=== PATIENT | male | born 1960 | race Caucasian/White ===

== ENCOUNTER 2020-05-25 18:09 | Inpatient (IN) | payer OTHER ==
[~2020-05-25] VITALS: Ht 177.8 cm; Wt 99.0 kg
--- NOTE | 2020-05-25 18:16 | NUR ---
TASK RN NOTE: REPORT TAKEN FROM EMS. PT BIBA FOR SYNCOPE X 2 TODAY, ONCE WHILE SITTING ON CHAIRLIFT, SECOND TIME WHILE WALKING IN [place]. PT SUSTAINED LAC TO RIGHT EYEBROW. PT DENIES MIDLINE CERVICAL PAIN/TENDERNESS. SENT TO [facility] FOR PACEMAKER PLACEMENT VIDAL BOWSER NOTED PROFOUND BRADYCARDIA, SINUS RATE BRADYCARDIA 30-40'S. EKG TAKEN ON ARRIVAL BY EDT. ALL MONITORS IN PLACE. REPORT GIVEN TO PRIMARY RN UMESH AT BEDSIDE.
--- NOTE | 2020-05-25 18:30 | NUR ---
HR 70-90, NO PALPITATION/SOB/CHEST PAIN PLACED ON MONITOR/PACER PADS BILATERAL LARGE BORE PIVS IN PLACE UPDATED ON ESTIMATED POC
--- NOTE | 2020-05-25 18:49 | NUR ---
RECEIVED REPORT FROM OFF GOING RN, PT A&OX4, NO ACUTE DISTRESS, RESTING IN BED COMFORTABLY. ON CR MONITOR, SIDERAILS UP X2, AND CALL LIGHT WITHIN REACH. SEE V/S.
--- NOTE | 2020-05-25 18:53 | NUR ---
REMAINS WITH NO BOUTS OF BRADYCARDIA ERP AT BEDSIDE-UPDATED ON ESTIMATED POC: PROBABLE ADMIT AND PACEMAKER IN AM REPORT TO RICCO BARNARD
--- NOTE | 2020-05-25 18:57 | NUR ---
WHILE TALKING WITH PT AT THIS TIME, PT HAD A RUN OF SINUS BRADYCARDIA NOTED ON MONITOR, AND PRINTED TO GO IN CHART. PT STATES HE FELT DIZZINESS AND LIGHTHEADEDNESS WHEN THAT HAPPENED. BRADYCARDIA LASTED APPROX 24 SECONDS, AND MD AWARE AND NOTIFIED.
--- NOTE | 2020-05-25 20:10 | NUR ---
PT REMAINS A&OX4, NO DISTRESS. ADMITTING MD TO SEE PT. AFTER, PT VOIDED INTO URINAL 700ML, NO DISTRESS. ABLE TO STAND, NO DIZZINESS PER PT. REMAINS ON CR MONITOR, AND AWAITING ADMIT BED.
[2020-05-25 21:26] VITALS: BP 148/90
[2020-05-25 23:40] VITALS: BP 145/92
[2020-05-26] MEDS ORDERED: hydrALAzine 20 MG/ML, 1ML IVPush PRN (01:30)
[2020-05-26] MEDS ORDERED: ONDANSETRON 2MG/ML, 2ML IVPush PRN (01:30)
[2020-05-26 02:00] VITALS: BP 147/90
[2020-05-26 02:17] LABS: BASOPHILS % (AUTO) 1 % (0-1); EOSINOPHILS % (AUTO) 1 % (1-7); LYMPHOCYTES % (AUTO) 14 % (22-44); MEAN CORPUSCULAR HEMOGLOBIN 30.2 pg (27.5-34.5); MEAN CORPUSCULAR HGB CONC 33.4 g/dL (33.2-36.2); MEAN PLATELET VOLUME 8.7 fL (7.4-10.4); MONOCYTES % (AUTO) 8 % (2-9); NEUTROPHILS % (AUTO) 77 % (42-75); PLATELET COUNT 218 x10^3/uL (130-400); RED BLOOD COUNT 4.96 x10^6/uL (4.38-5.82); RED CELL DISTRIBUTION WIDTH 13.6 % (9.4-14.8)
[2020-05-26 02:19] LABS: MD NO
[2020-05-26] MEDS: HYDROcodone/APAP 5/325 TABLET PO PRN (02:23)
[2020-05-26 03:07] LABS: TROPONIN I < 0.015 ng/mL (0.000-0.045)
[2020-05-26 07:38] LABS: TROPONIN I < 0.015 ng/mL (0.000-0.045)
[2020-05-26 08:30] VITALS: BP 149/89
[2020-05-26 08:35] VITALS: BP 164/101
[2020-05-26 08:40] VITALS: BP 142/82
[2020-05-26] MEDS ORDERED: LIDOCAINE 2%, 20ML ONE (09:24)
[2020-05-26] MEDS ORDERED: MIDAZOLAM 1 MG/ML, 5ML ONE (09:24)
[2020-05-26] MEDS ORDERED: FENTANYL PF 100 MCG/2ML ONE ×2 (09:24→10:16)
[2020-05-26] MEDS ORDERED: CEFAZOLIN 1,000 MG ONE (09:24)
[2020-05-26] MEDS ORDERED: CEFAZOLIN PMX 1GM/50ML 50 ML ONE (09:24)
[2020-05-26] MEDS: SODIUM CHLORIDE 0.9% 1,000 ML IV SCH ×2 (09:30→16:09)
[2020-05-26] MEDS ORDERED: CEFAZOLIN PMX 1GM/50ML 50 ML IVPB ONE (09:30)
[2020-05-26] MEDS ORDERED: MIDAZOLAM 1 MG/ML, 2ML ONE (10:16)
[2020-05-26] MEDS ORDERED: HOLD MEDICATION MC PRN (11:00)
[2020-05-26] MEDS: CEFAZOLIN PMX 1GM/50ML 50 ML IVPB SCH (16:48)
[2020-05-26 18:40] VITALS: BP 142/96
[2020-05-26] MEDS: SODIUM CHLORIDE FLUSH 10ML SYR IVF SCH (21:00)
[2020-05-27 00:05] VITALS: BP 124/88
[2020-05-27] MEDS: CEFAZOLIN PMX 1GM/50ML 50 ML IVPB SCH (01:00)
[2020-05-27] MEDS: HYDROcodone/APAP 5/325 TABLET PO PRN (01:26)
[2020-05-27] MEDS: SODIUM CHLORIDE 0.9% 1,000 ML IV SCH (01:30)
[2020-05-27 05:21] LABS: CHLORIDE 110 mmol/L (98-107)
[2020-05-27 05:30] LABS: ALANINE AMINOTRANSFERASE 32 U/L (12-78); ALBUMIN 3.3 g/dL (3.4-5.0); ALKALINE PHOSPHATASE 41 U/L (45-117); ANION GAP 5 mmol/L (5-15); BILIRUBIN,TOTAL 0.6 mg/dL (0.2-1.0); CALCIUM 9.2 mg/dL (8.5-10.1); CHOL/HDL RATIO 1.9; CHOLESTEROL, TOTAL 121 mg/dL (140-239); CREATININE 0.93 mg/dL (0.7-1.3); HDL CHOL % 54 % (26-37); HDL CHOLESTEROL (DIRECT) 65 mg/dL (40-60); LDL CHOLESTEROL,CALCULATED 41 mg/dL (54-169); LDL/HDL RATIO 0.6 (0.5-3.0); TOTAL PROTEIN 6.5 g/dL (6.4-8.2); TRIGLYCERIDES 73 mg/dL (50-200); VLDL CHOLESTEROL 15 mg/dL (0-25)
[2020-05-27 06:37] VITALS: BP 145/96
[2020-05-27] MEDS ORDERED: ACET650S21 PO (08:11)
[2020-05-27] MEDS ORDERED: HYDR-1067 PO (08:11)
[2020-05-27] MEDS: SODIUM CHLORIDE FLUSH 10ML SYR IVF SCH (09:00)
== END 2020-05-27 11:00 | disposition home or self-care (01) | DRG 243 ==
LOC: ED 20:51 → 5SO 20:52 → DCLOUNGE 05-27 10:46
PROVIDERS: ADMIT Internal Medicine; ATTEND Internal Medicine
PROC: 02H63JZ Insertion of Pacemaker Lead into Right Atrium, Percutaneous Approach (ICD-10-PCS; principal; 2020-05-26)
PROC: 02HK3JZ Insertion of Pacemaker Lead into Right Ventricle, Percutaneous Approach (ICD-10-PCS; 2020-05-26)
PROC: 0JH606Z Insertion of Pacemaker, Dual Chamber into Chest Subcutaneous Tissue and Fascia, Open Approach (ICD-10-PCS; 2020-05-26)
PROC: B5171ZZ Fluoroscopy of Left Subclavian Vein using Low Osmolar Contrast (ICD-10-PCS; 2020-05-26)
DX: I49.5 Sick sinus syndrome (principal); I45.2 Bifascicular block; S01.111A Laceration without foreign body of right eyelid and periocular area, initial encounter; W18.39XA Other fall on same level, initial encounter; G89.18 Other acute postprocedural pain; Z96.659 Presence of unspecified artificial knee joint; I44.1 Atrioventricular block, second degree; Y93.89 Activity, other specified; Y92.89 Other specified places as the place of occurrence of the external cause; Y99.8 Other external cause status; Z86.16 Personal history of COVID-19; Z87.891 Personal history of nicotine dependence; Z79.899 Other long term (current) drug therapy; Z79.891 Long term (current) use of opiate analgesic; Z79.01 Long term (current) use of anticoagulants
CPT/HCPCS: 36415; J3490; 71045; 80053; 80061; 83036; 83735; 84100; 84443; 84484; 85025; 93005; 93306; G0378; J0690; J2250; J3010